=== PATIENT | male | born 1950 ===

== ENCOUNTER 2025-07-19 23:47 | Emergency (ER) | payer MEDICARE, OTHER ==
[~2025-07-19] VITALS: Ht 157.4 cm; Wt 48.1 kg
[2025-07-19] MEDS ORDERED: SODIUM CHLORIDE 0.9% 500 ML IV ONE (23:50)
[2025-07-19] MEDS ORDERED: POTASSIUM CHLO10 ME5 PO (23:56)
[2025-07-19] MEDS ORDERED: BUMETANIDE1 MG PO (23:56)
[2025-07-19] MEDS ORDERED: FEROSUL325 M1 PO (23:56)
[2025-07-19] MEDS ORDERED: D3-200050 MCG PO (23:56)
[2025-07-20 00:11] LABS: BASO # 0.1 10*3/uL (0.0-0.1); BASO % 0.6 % (0.0-1.0); EOS # 0.1 10*3/uL (0.0-0.4); EOS % 0.9 % (1.0-4.0); MEAN CELL VOLUME 77.5 fl (80.0-94.0); MEAN CORPUSCULAR HGB 22.7 pg (27.0-31.0); MEAN PLATELET VOLUME 8.5 fl (9.6-12.3); MONO # 1.0 10*3/uL (0.1-1.0); MONO % 8.1 % (3.0-9.0); NEUT # 9.5 10*3/uL (2.3-7.9); NEUT % 80.9 % (47.0-73.0); NUCLEATED RED BLOOD CELL 0.0 % (0.0-0.0); NUCLEATED RED BLOOD CELL 0.0 10*3/uL (0.0-0.0); PLATELET COUNT AUTOMATED 400 10*3/uL (130-400); RED CELL DISTRI WIDTH 16.4 % (0-14.5)
[2025-07-20 00:26] LABS: BUN 23 mg/dl (9-23)
[2025-07-20] MEDS ORDERED: POTASSIUM CHLORIDE 20 MEQ TAB PO ONE (02:35)
== END 2025-07-20 02:51 | disposition home or self-care (01) ==
LOC: ED 23:47
PROVIDERS: Internal Medicine
DX: S22.20XA Unspecified fracture of sternum, initial encounter for closed fracture (principal); R09.A2 Foreign body sensation, throat; E87.6 Hypokalemia; D50.9 Iron deficiency anemia, unspecified; R60.0 Localized edema; I50.9 Heart failure, unspecified; Z79.899 Other long term (current) drug therapy; X58.XXXA Exposure to other specified factors, initial encounter; Y93.89 Activity, other specified; Y92.89 Other specified places as the place of occurrence of the external cause; Y99.8 Other external cause status